=== PATIENT | male | born 1955 | race Caucasian/White ===

== ENCOUNTER 2021-02-12 05:34 | Outpatient (RCR) | payer MEDICARE, MEDICAID ==
[~2021-02-12] VITALS: Ht 172.7 cm; Wt 79.0 kg
[~2021-02-12 05:34] MED LIST: ARIP20TA PO; ASCO500C17 PO; ASPI-875 PO; ATEN-147 PO; ATOR20TA66 PO; BACL10TA PO; BUDE10.22 IH; CALC-794 PO; CETI10TA17 PO; CHLO25TA2 PO; CHOL500019 PO; CHOL500050 PO; CLN150C PO; D50KC PO; DOCU100T2 PO; FAMO40TA72 PO; FENO48TA10 PO; FERR325T24 PO; FLUO20CA46 PO; IPRA4AER IH; LEVO75CA5 PO; LISI40TA PO; MELO-195 PO; METH-732 PO; METO50TA7 PO; MIRT-69 PO; OMEP20CA12 PO; PANT40TA52 PO; RT-ALBUINH IH; RT-ALBUINH INH; TIOT18CA IH; TRAZ50TA67 PO
== END 2021-02-12 09:02 | disposition home or self-care (01) ==
LOC: PREOP 05:34
PROVIDERS: ATTEND Surgery
DX: Z01.812 Encounter for preprocedural laboratory examination (principal); K21.9 Gastro-esophageal reflux disease without esophagitis; K92.1 Melena; Z20.822 Contact with and (suspected) exposure to COVID-19
CPT/HCPCS: 87635

== ENCOUNTER → 2021-02-23 | Outpatient (CLI) | payer MEDICARE, MEDICAID ==
[~2021-02-23] MED LIST changes: +SUCR1ORA5 PO
== END ==
LOC: LABNPT 06:25
PROVIDERS: ATTEND Surgery
DX: Z20.822 Contact with and (suspected) exposure to COVID-19 (principal)
CPT/HCPCS: 87635

== ENCOUNTER → 2021-02-25 | Day surgery (SDC) | payer MEDICARE, MEDICAID ==
[~2021-02-25] VITALS: Ht 172.7 cm; Wt 79.0 kg
[2021-02-25] VITALS (7 sets, daily range): BP systolic 115–132; BP diastolic 70–93
[~2021-02-25] MED LIST changes: +HURRICAINE EXT TUBE (BENZOCAINE) XX PRN; +LACTATED RINGERS 1,000 ML IV ONE; +LACTATED RINGERS 1,000 ML IV STA; +PROPOFOL INJECTION 50 ML IV ONE
--- NOTE | 2021-02-25 10:21 | Discharge Inst-Simple/Standard ---
Discharge Inst-Standard Discharge Medications New, Converted or Re-Newed RX: Transmitted to Pharmacy Patient Instructions/Follow Up Plan of Care/Instructions/FU: 2-3 weeks [place] Activity as Tolerated: Yes Discharge Diet: Regular Diet JAYMIE CHIN DO Feb 25, 2021 10:21
--- NOTE | 2021-02-25 10:23 | Progress Note-Post Operative ---
Post-Operative Progess Note Surgeon (s)/Online Merchant (s) Surgeon JAYMIE CHIN DO Online Merchant: na Pre-Operative Diagnosis melena, gerd Post-Operative Diagnosis small hiatal hernia, reflux esophagitis, rectal polyp Procedure & Operative Findings Date of Procedure 02/25/21 Procedure Performed/Findings egd c biopsies, colonoscopy c hot bx polypectomy Anesthesia Type per service representative Estimated Blood Loss Estimated blood loss (mL): none Specimens/Packing Specimens Removed antrum, ge, rectal polyp JAYMIE CHIN DO Feb 25, 2021 10:23
--- NOTE | 2021-02-25 14:58 | OPERATIVE REPORT ---
DATE OF SERVICE: 02/25/2021 PREOPERATIVE DIAGNOSES: Melena and gastroesophageal reflux disease. POSTOPERATIVE DIAGNOSES: Small hiatal hernia, reflux esophagitis, rectal polyp. PROCEDURE: EGD with biopsies, colonoscopy with hot biopsy polypectomy x1. SURGEON: Jaymie Major DO ANESTHESIA: Per JEWEL STRIPPER. ESTIMATED BLOOD LOSS: None. COMPLICATIONS: None. INDICATIONS: The patient is a 65-year-old male with melena and GERD symptoms. He understands risks and benefits of procedure and wished to proceed with procedure. Consent was signed in the chart. DESCRIPTION OF PROCEDURE: The patient was taken to endoscopy suite, placed in left lateral recumbent position. Timeout was performed. Scope was inserted in mouth, down the esophagus, stomach and into the duodenum without difficulty. There were no polyps, masses or ulcerations within the duodenum. Scope was slowly retracted back into the stomach where it was further insufflated. Slight erythematous changes in the antrum. Biopsy was obtained. Scope was retroflexed noting a small hiatal hernia. Scope was returned to its normal position, slowly withdrawn to distal esophagus, which had some changes of reflux esophagitis. Biopsy of the GE junction was obtained. Scope was then slowly retracted back to completely remove, noting no other pathology. Digital rectal exam was performed. No palpable polyps, masses or ulcerations. Scope was inserted in the rectum and advanced all the way to cecum with minimal difficulty. Prep was adequate. Scope was slowly retracted back. No polyps, masses or ulcerations within the cecum, ascending, transverse, descending and sigmoid colon. In the rectum, a very small polyp was present, which hot biopsy polypectomy was performed. Scope was attempted to be retroflexed however, due to being narrow multiple insertions and retractions were made noting no other pathology were made and then the scope was then slowly retracted back until completely removed. The patient tolerated procedure well without any complications, taken to recovery room in stable condition. RECOMMENDATIONS: The patient will need repeat colonoscopy in 5 years. We will also start him on Carafate 1 gram four times a day and we will continue his other medications. If the patient has any different changes, he should be reevaluated at that time for EGD or colonoscopy. The patient will follow up in the office in 2 to 3 weeks. Job ID: [id number] DocumentID: [id number] Dictated Date: 02/25/2021 10:25:43 Transmitter Supervisor Date: 02/25/2021 14:58:20 Dictated By: JAYMIE MAJOR DO
== END ==
LOC: ENDO 08:19
PROVIDERS: ATTEND Surgery
DX: K21.00 Gastro-esophageal reflux disease with esophagitis, without bleeding (principal); K62.1 Rectal polyp; K92.1 Melena; I10 Essential (primary) hypertension; E78.5 Hyperlipidemia, unspecified; J43.9 Emphysema, unspecified; G47.33 Obstructive sleep apnea (adult) (pediatric); E03.9 Hypothyroidism, unspecified; Z79.890 Hormone replacement therapy; Z79.899 Other long term (current) drug therapy; Z87.891 Personal history of nicotine dependence; Z86.73 Personal history of transient ischemic attack (TIA), and cerebral infarction without residual deficits; Z79.82 Long term (current) use of aspirin; Z90.89 Acquired absence of other organs; Z79.02 Long term (current) use of antithrombotics/antiplatelets; Z83.3 Family history of diabetes mellitus; Z80.9 Family history of malignant neoplasm, unspecified
CPT/HCPCS: 82947; 88305

== ENCOUNTER → 2021-05-26 | Outpatient (CLI) | payer MEDICARE, MEDICAID ==
[~2021-05-26] MED LIST changes: +ALBU2.5V4 INH; +ATEN50TA PO; +CALC-250 PO; +CHLO25TA22 PO; +CYAN500T8 PO; -FENO48TA10 PO; +FENO48TA11 PO; -HURRICAINE EXT TUBE (BENZOCAINE) XX PRN; -LACTATED RINGERS 1,000 ML IV ONE; -LACTATED RINGERS 1,000 ML IV STA; +LISI10TA25 PO; +PARO40TA3 PO; -PROPOFOL INJECTION 50 ML IV ONE; +SUCR1TAB PO; +TRZ50T PO
--- NOTE | 2021-05-26 10:27 | Diagnostic Imaging Report ---
PROCEDURE: US Gallbladder. TECHNIQUE: Multiple real-time grayscale images were obtained over the right upper quadrant in various projections. INDICATION: Epigastric pain. FINDINGS: Liver is normal in size at 16 cm. There is a small cyst adjacent to the gallbladder approximately 12 mm in size. A second small cyst is seen measuring 11 mm in size in the right lobe. No solid lesions are seen. Gallbladder does have a stone in the region of the neck. However, no significant gallbladder wall thickening is seen. There is no pericholecystic fluid. Extrahepatic bile duct is minimally prominent at 7 mm. The pancreas is obscured by bowel gas. The aorta is obscured. IVC is patent. Right kidney is without calculi or hydronephrosis. There is no ascites. IMPRESSION: 1. Hepatic cysts. 2. Cholelithiasis with a stone in the region of gallbladder neck and minimal prominence of the extrahepatic bile duct. However, no gallbladder wall thickening is identified. Dictated by: Dictated on workstation # [id number]
== END ==
LOC: RAD 09:00
PROVIDERS: ATTEND Surgery
DX: K76.89 Other specified diseases of liver (principal); K80.20 Calculus of gallbladder without cholecystitis without obstruction
CPT/HCPCS: 76705

== ENCOUNTER 2021-06-01 05:40 | Outpatient (CLI) | payer MEDICARE, MEDICAID ==
[~2021-06-01] VITALS: Ht 172.7 cm; Wt 75.8 kg
[~2021-06-01 05:40] MED LIST changes: -ALBU2.5V4 INH; -ATEN50TA PO; -CALC-250 PO; -CHLO25TA22 PO; -CYAN500T8 PO; -LISI10TA25 PO; -PARO40TA3 PO; -SUCR1TAB PO; -TRZ50T PO
[2021-06-01] MEDS ORDERED: ALBU2.5V4 INH (13:58)
[2021-06-01] MEDS ORDERED: METH-732 PO (13:58)
[2021-06-01] MEDS ORDERED: ASPI-875 PO (13:58)
[2021-06-01] MEDS ORDERED: LISI10TA25 PO (13:58)
[2021-06-01] MEDS ORDERED: ATEN50TA PO (13:58)
[2021-06-01] MEDS ORDERED: TRZ50T PO (13:58)
[2021-06-01] MEDS ORDERED: PARO40TA3 PO (13:58)
[2021-06-01] MEDS ORDERED: CALC-250 PO (13:58)
[2021-06-01] MEDS ORDERED: SUCR1TAB PO (13:58)
[2021-06-01] MEDS ORDERED: CHLO25TA22 PO (14:32)
[2021-06-01] MEDS ORDERED: CYAN500T8 PO (14:32)
[2021-06-03] MEDS ORDERED: DOCU-143 PO (09:58)
[2021-06-03] MEDS ORDERED: ACHD5005 PO (09:58)
== END 2021-06-01 14:40 | disposition home or self-care (01) ==
LOC: PREOP 05:40
PROVIDERS: ATTEND Surgery
DX: Z01.818 Encounter for other preprocedural examination (principal)
CPT/HCPCS: 87081

== ENCOUNTER 2021-06-03 07:35 | Day surgery (SDC) | payer MEDICARE, MEDICAID ==
[2021-06-03] VITALS (10 sets, daily range): BP systolic 107–139; BP diastolic 61–92
[~2021-06-03] VITALS: Ht 172.7 cm; Wt 75.8 kg
[~2021-06-03 07:35] MED LIST changes: +ALBU2.5V4 INH; +ATEN50TA PO; +CALC-250 PO; +CHLO25TA22 PO; +CYAN500T8 PO; +LISI10TA25 PO; +PARO40TA3 PO; +SUCR1TAB PO; +TRZ50T PO
[2021-06-03] MEDS ORDERED: ceFAZolin INJECTION 1,000 MG in WATER (STERILE) FOR INJECTION 10 ML IV ONE (07:45)
[2021-06-03] MEDS: LACTATED RINGERS 1,000 ML IV PRN ×2 (07:50→09:50)
--- NOTE | 2021-06-03 07:54 | Progress Note-Pre Operative ---
Pre-Operative Progress Note H&P Reviewed The H&P was reviewed, patient examined and no changes noted. Date Seen by Provider: Jun 03, 2021 Time Seen by Provider: 07:53 Date H&P Reviewed: Jun 03, 2021 Time H&P Reviewed: 07:54 Pre-Operative Diagnosis: cholelithiasis JAYMIE CHIN DO Jun 03, 2021 07:54
[2021-06-03] MEDS ORDERED: ceFAZolin INJECTION 1,000 MG ONE (07:55)
[2021-06-03] MEDS ORDERED: WATER (STERILE) FOR INJECTION 10 ML ONE (07:56)
[2021-06-03] MEDS ORDERED: ceFAZolin INJECTION 1,000 MG VIAL IV ONE (08:00)
[2021-06-03] MEDS ORDERED: LIDOCAINE/EPI 1%-1:100,000 (XYLOCAINE) 20ML ONE (08:15)
[2021-06-03] MEDS ORDERED: SEVOFLURANE (ULTANE) 15 ML INHAL SOLN ONE ×3 (08:34→09:54)
[2021-06-03] MEDS ORDERED: fentaNYL INJ 100 MCG/2 ML AMP ONE (08:34)
[2021-06-03] MEDS ORDERED: proPOfol 200 MG/20 ML (DIPRIVAN) VIAL IV ONE (08:34)
[2021-06-03] MEDS ORDERED: LIDOCAINE PF 2% 5 ML (XYLOCAINE) VIAL ONE (08:34)
[2021-06-03] MEDS ORDERED: MIDAZOLAM 2 MG/2 ML (VERSED) VIAL ONE (08:34)
[2021-06-03] MEDS ORDERED: ONDANSETRON 4 MG/2 ML (SDV) Z0FRAN ONE (08:34)
[2021-06-03] MEDS ORDERED: ROCURONIUM 10 MG/ML 5 ML SYRINGE IV ONE (08:34)
[2021-06-03] MEDS ORDERED: morphine INJ 10 MG/ML 1ML (SYR OR VIAL) ONE (09:42)
[2021-06-03] MEDS ORDERED: GLYCOPYRROLATE 0.2 MG/ML (ROBINUL) 2 ML VIAL ONE (09:50)
--- NOTE | 2021-06-03 09:57 | Progress Note-Post Operative ---
Post-Operative Progess Note Surgeon (s)/Stucco Laborer (s) Surgeon JAYMIE CHIN DO Stucco Laborer: Dr. Browne to assist in retraction dissection and closure. Pre-Operative Diagnosis cholelithiasis Post-Operative Diagnosis same Procedure & Operative Findings Date of Procedure 06/03/21 Procedure Performed/Findings PROCEDURE: Laparoscopic cholecystectomy with intraoperative cholangiogram. COMPLICATIONS: None. PROCEDURE: The patient was taken to the operating suite and was prepped and draped in sterile fashion. A surgical pause was performed. Just superior to the umbilicus, a 12 mm incision was made. Dissection was taken down to the fascia, which was then scored and grasped with a Enrique and the abdomen was then entered. A 0 Vicryl suture was placed in a [id number] fashion and a Moreno trocar was placed and secured. Pneumoperitoneum was achieved. A 5mm trochar place in the subxyphoid and 2 in the right upper quadrant. The gallbladder was then grasped and elevated. The cystic duct, and cystic artery were then dissected out. Clip was placed on the distal portion of the cystic duct which was then partially transected. An arrow catheter was inserted into the duct. The cholangiogram was then performed. No filing defects and contrast made its way into the duodenum. Cystic duct enters distal right hepatic duct. Catheter removed. Clips were placed on proximal portion of the cystic duct and then the duct was then transected. Clips were placed along the proximal and distal portion of the cystic artery which was then transected. Hook cautery was used to dissect the gallbladder from the gallbladder fossa achieving hemostasis. The gallbladder was placed in an Endobag and removed through the 12 mm trocar site. The abdomen was then reinspected. Copious amounts of irrigation were used to irrigate the abdomen and there were no signs of active bleeding. Hemostasis had been achieved. The 12 mm fascial defect was then closed with 0 Vicryl suture that had been placed in a [id number] fashion. The abdomen was then desufflated, the trocars were removed. The abdomen was then washed and dried. The skin was then closed using 4-0 Monocryl in a subcuticular fashion. The abdomen was washed and dried and Skin Affix was place over incisions. Patient tolerated the procedure well without any complications and was taken to the recovery room in stable condition. Anesthesia Type general Estimated Blood Loss Estimated blood loss (mL): minimal Specimens/Packing Specimens Removed gallbladder CHIN,JAYMIE D DO Jun 03, 2021 09:57
[2021-06-03] MEDS ORDERED: ACHD5005 PO (09:58)
[2021-06-03] MEDS ORDERED: DOCU-143 PO (09:58)
--- NOTE | 2021-06-03 10:00 | Discharge Inst-Simple/Standard ---
Discharge Inst-Standard Discharge Medications New, Converted or Re-Newed RX: Transmitted to Pharmacy Patient Instructions/Follow Up Plan of Care/Instructions/FU: 2-3 weeks [place] Activity as Tolerated: No Discharge Diet: Regular Diet Other Inst to Patient Follow up Appt: Make appointment for 2-3 weeks. Instructions: No lifting greater than 10 pounds. No strenuous activity. May shower in 24 hours, no tub bath or soaking. Use incentive spirometer at home as directed. No Smoking Skin/Wound Care: You have special glue over incision, it will fall off on it's own. Symptoms to Report: Appetite Changes, Extremity Discoloration, Numbness/Tingling, Swelling Increased, Bleeding Excessive, Eyesight Changes, Pain Increased, Urine Color Change, Constipation(Persistent), Fever over 101 degree F, Pain/Pressure in chest, Urinating Difficulty, Cough Up/Vomit Blood, Heart Beat Irreg/Pounding, Pain/Pressure in jaw, Vaginal Bleeding Increase, Cramps in feet or legs, Lightheadedness, Pain/Pressure in shoulder, Diarrhea(Persistent), Memory Changes Suddenly, Questions/Concerns, Weight gain consecutive days, Dizziness/Fainting, Nausea/Vomiting, Shortness of Breath, Weight gain over 2 pounds. If eyes or skin turn yellow notify physician. If questions or concerns contact your physician Or seek help at emergency department. JAYMIE CHIN DO Jun 03, 2021 10:00
--- NOTE | 2021-06-03 10:06 | Anesthesia-General Post-Op ---
General Patient Condition Mental Status/LOC: Same as Preop Cardiovascular: Satisfactory Nausea/Vomiting: Absent Respiratory: Satisfactory Pain: Controlled Complications: Absent Post Op Complications Complications None Follow Up Care/Instructions Patient Instructions None needed. Anesthesia/Patient Condition Patient Condition Patient is doing well, no complaints, stable vital signs, no apparent adverse anesthesia problems. No complications reported per nursing. WILLIAM VINCENT CRNA Jun 03, 2021 10:06
[2021-06-03] MEDS ORDERED: fentaNYL INJ 100 MCG/2 ML AMP IVP ONE (10:15)
[2021-06-03] MEDS ORDERED: morphine INJ 10 MG/ML 1ML (SYR OR VIAL) IVP ONE (10:15)
[2021-06-03] MEDS ORDERED: MEPERIDINE (DEMEROL) INJ 50 MG/ML IVP ONE (10:15)
--- NOTE | 2021-06-03 14:22 | Diagnostic Imaging Report ---
Indication: Cholecystitis 12 seconds of fluoroscopy was used for the cholangiogram in surgery. 64 images were obtained which shows no constant filling defect or constricting lesion. There is flow of contrast into the duodenum. IMPRESSION: Normal cholangiogram in surgery. Dictated by: Dictated on workstation # [id number]
== END 2021-06-03 12:53 | disposition home or self-care (01) ==
LOC: SDC 07:35
PROVIDERS: ATTEND Surgery
DX: K80.10 Calculus of gallbladder with chronic cholecystitis without obstruction (principal); D13.5 Benign neoplasm of extrahepatic bile ducts; I10 Essential (primary) hypertension; J43.9 Emphysema, unspecified; K21.00 Gastro-esophageal reflux disease with esophagitis, without bleeding; K76.89 Other specified diseases of liver; E78.5 Hyperlipidemia, unspecified; G47.33 Obstructive sleep apnea (adult) (pediatric); G40.909 Epilepsy, unspecified, not intractable, without status epilepticus; Z99.89 Dependence on other enabling machines and devices; Z87.891 Personal history of nicotine dependence; Z79.890 Hormone replacement therapy; Z79.899 Other long term (current) drug therapy; Z11.2 Encounter for screening for other bacterial diseases
CPT/HCPCS: 76000; 87081

== ENCOUNTER → 2022-09-29 | Outpatient (CLI) | payer MEDICARE, MEDICAID ==
[~2022-09-29] MED LIST changes: +ACHD5005 PO; +DOCU-143 PO; -FLUO20CA46 PO; +FLUO20CA48 PO
--- NOTE | 2022-09-29 10:43 | Diagnostic Imaging Report ---
INDICATION: Stroke, vertigo. TECHNIQUE: Multiple contiguous axial images were obtained through the brain without the use of intravenous contrast. Auto Exposure Controls were utilized during the CT exam to meet ALARA standards for radiation dose reduction. There is no prior head CT for comparison. There are mild diffuse atrophic changes. There are bilateral old occipital lobe infarcts. There are mild chronic changes in deep white matter. There is no mass effect or extra-axial fluid collection. Ventricles are normal in size. Calvarial windows appear unremarkable. Mastoid air cells and visualized portions of the sinuses are well aerated. IMPRESSION: Mild atrophic changes and chronic ischemic change in deep white matter. 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 No definite acute appearing abnormality. Dictated by: Dictated on workstation # [id number]
== END ==
LOC: RAD 09:34
PROVIDERS: ATTEND Nurse Practitioner Family
DX: I67.82 Cerebral ischemia (principal); Z86.73 Personal history of transient ischemic attack (TIA), and cerebral infarction without residual deficits; Z91.81 History of falling
CPT/HCPCS: 70450